=== PATIENT | male | born 1965 | race African-American/Black ===

== ENCOUNTER 2016-12-18 15:38 | Emergency (ER) | payer BC ==
[~2016-12-18] VITALS: Ht 170.2 cm; Wt 95.3 kg
[2016-12-18 16:22] LABS: Urine Bilirubin Negative (Negative); Urine Blood TRACE /uL (Negative); Urine Color Yellow (Yellow); Urine Glucose Normal (Normal); Urine Ketone Negative (Negative); Urine Nitrite Negative (Negative); Urine RBC 1 /hpf (0 - 3); Urine Urobilinogen Normal (Negative); Urine pH 5.5 (5.0-8.0)
[2016-12-18 16:38] LABS: Basophils # (auto) 0 uL; Basophils % (auto) 0.4 % (0.0-2.0); CONDITION Y; Eosinophils # (auto) 0.1 uL; Eosinophils % (auto) 1.6 % (0.0-7.0); Hematocrit 47.3 % (41.0-53.0); Hemoglobin 16.1 g/dL (13.5-17.5); Lymphocytes # (auto) 2.6 uL; Lymphocytes % (auto) 43.1 % (10.0-50.0); Mean Corpuscular Hgb Conc. 34.1 g/dL (32.0-36.0); Mean Corpuscular Volume 93.7 fL (80.0-100.0); Mean Platelet Volume 7.8 fL (7.4-10.4); Monocytes # (auto) 0.5 uL; Neutrophils # (auto) 2.9 uL; Neutrophils % (auto) 46.9 % (37.0-80.0); Platelet Count (auto) 258 10^3/uL (140-450); Red Cell Distribution Width 13.2 % (11.6-16.0); White Blood Cell 6.1 10^3/uL (4.4-10.8)
[2016-12-18 17:12] LABS: Albumin 3.8 g/dL (3.4-5.0); BUN/Creatinine Ratio 11.5; Calcium 8.4 mg/dL (8.5-10.1); Potassium 3.5 mmol/L (3.5-5.1)
[2016-12-18 17:15] LABS: Bilirubin, Total 0.3 mg/dL (0.2-1.0); Total Protein 7.3 g/dL (6.4-8.2)
[2016-12-19 03:19] LABS: Magnesium 2.6 mg/dL (1.6-2.6)
[2016-12-19 03:33] LABS: Temperature: 21.8 C (20.0-25.0)
[2016-12-19 05:30] VITALS: BP 102/66
== END 2016-12-19 05:33 | disposition home or self-care (01) ==
LOC: ER 15:40
DX: R00.2 Palpitations (principal); G43.909 Migraine, unspecified, not intractable, without status migrainosus
CPT/HCPCS: 36415; 71010; 80053; 80307; 81001; 83735; 83880; 84443; 84484; 85025; 93005

== ENCOUNTER 2023-04-19 17:09 | Emergency (ER) | payer BC ==
[~2023-04-19] VITALS: Ht 170.2 cm; Wt 108.0 kg
[2023-04-19 19:35] LABS: Basophils # (auto) 0 10 ^3/uL (0-0.2); Basophils % (auto) 0.4 % (0.0-2.0); Eosinophils # (auto) 0.1 10 ^3/uL (0-0.8); Eosinophils % (auto) 1.3 % (0.0-7.0); Hematocrit 47.3 % (41.0-53.0); Hemoglobin 15.9 g/dL (13.5-17.5); Lymphocytes # (auto) 1.9 10 ^3/uL (0.4-5.4); Lymphocytes % (auto) 39.5 % (10.0-50.0); Mean Corpuscular Hemoglobin 31.3 pg (28.0-32.0); Mean Corpuscular Hgb Conc. 33.5 g/dL (32.0-36.0); Mean Corpuscular Volume 93.4 fL (80.0-100.0); Monocytes # (auto) 0.3 10 ^3/uL (0-1.3); Monocytes % (auto) 6.8 % (0.0-12.0); Neutrophils # (auto) 2.5 10 ^3/uL (1.6-8.6); Nucleated Red Blood Cells % 0.1 %; Red Blood Cells 5.07 10^6/uL (4.5-5.90); Red Cell Distribution Width 13.5 % (11.8-14.3); White Blood Cell 4.8 10^3/uL (4.4-10.8)
[2023-04-19 20:12] LABS: Alanine Aminotransferase 28 U/L (7-40); Albumin 4.6 g/dL (3.2-4.8); Alkaline Phosphatase 61 U/L (46-116); Anion Gap 5 (5-15); Aspartate Aminotransferase 20 U/L (13-40); BUN/Creatinine Ratio 9.7 (10.0-20.0); Blood Urea Nitrogen 12 mg/dL (9-23); Calcium 9.3 mg/dL (8.7-10.4); Carbon Dioxide 29 mmol/L (20-30); Chloride 105 mmol/L (98-107); Glucose 96 mg/dL (74-106); Potassium 4.7 mmol/L (3.5-5.1); Sodium 139 mmol/L (136-145)
[2023-04-19 20:13] LABS: Bilirubin, Total 0.7 mg/dL (0.2-1.0); Total Protein 7.4 g/dL (5.7-8.2)
[2023-04-20 03:31] VITALS: BP 115/73; PULSE 72; RESP 18; TEMP 98.3; O2SAT 97
== END 2023-04-20 03:56 | disposition home or self-care (01) ==
LOC: ER 17:09 → EDUNIT# 17:09 → ER 04-20 03:56
DX: R00.2 Palpitations (principal); I47.10 Supraventricular tachycardia, unspecified; I10 Essential (primary) hypertension; I25.2 Old myocardial infarction; K21.9 Gastro-esophageal reflux disease without esophagitis; M19.90 Unspecified osteoarthritis, unspecified site; Z85.9 Personal history of malignant neoplasm, unspecified; Z98.890 Other specified postprocedural states
CPT/HCPCS: 36415; 71045; 80053; 84484; 85025; 93005

== ENCOUNTER 2023-11-08 06:55 | Day surgery (SDC) | payer BC ==
[~2023-11-08] VITALS: Ht 170.2 cm; Wt 99.8 kg
[~2023-11-08 06:55] MED LIST: CHOL20007 PO; MAGN400T40 PO; METO25TA5 PO; OMEP20TA PO
[2023-11-08] MEDS ORDERED: MIDAZOLAM HCL 2MG/2ML 2ml VIAL (1mg/ml) ONE (10:49)
[2023-11-08] MEDS ORDERED: fentaNYL CITRATE 100 MCG/2 ML VL ONE (10:49)
[2023-11-08] MEDS ORDERED: LIDOCAINE 2%HCL (LOCAL ANESTH.) INJ 20ML MDV ONE (10:50)
[2023-11-08] MEDS ORDERED: VANCOMYCIN 1GM/200ML 200 ML IV ONE (10:50)
[2023-11-08] MEDS: VANCOMYCIN 1GM/200ML 200 ML IV ONE (10:55)
== END 2023-11-08 12:34 | disposition home or self-care (01) ==
LOC: CATH 06:55
PROVIDERS: ATTEND Internal Medicine
DX: R55 Syncope and collapse (principal); R00.2 Palpitations; Z85.46 Personal history of malignant neoplasm of prostate
CPT/HCPCS: 33285; C1764; J2250; J3010; J3370; J7030; 99152

== ENCOUNTER 2023-12-27 08:48 | Day surgery (SDC) | payer BC ==
[2023-12-27] VITALS (9 sets, daily range): BP systolic 92–120; BP diastolic 55–82; PULSE 74–86; RESP 12–22; TEMP 97.6; O2SAT 96–97
[~2023-12-27] VITALS: Ht 170.2 cm; Wt 102.1 kg
[2023-12-27] MEDS ORDERED: ANGIOMAX 250 MG VIAL IV ONE (10:44)
[2023-12-27] MEDS ORDERED: MIDAZOLAM HCL 2MG/2ML 2ml VIAL (1mg/ml) ONE ×2 (10:44→11:19)
[2023-12-27] MEDS ORDERED: VERAPAMIL 2.5MG/ML INJ 2ML VIAL IV ONE (10:44)
[2023-12-27] MEDS ORDERED: HEPARIN SODIUM (PORCINE) 5000 UNITS/ML 1ML VIAL ONE (10:44)
[2023-12-27] MEDS ORDERED: fentaNYL CITRATE 100 MCG/2 ML VL ONE (10:44)
[2023-12-27] MEDS ORDERED: IODIXANOL 320MG/ML 100ML BTL IV ONE ×2 (10:45→10:58)
[2023-12-27] MEDS ORDERED: SODIUM CHL 0.9% 50 ML ONE (10:45)
[2023-12-27] MEDS ORDERED: LIDOCAINE 2%HCL (LOCAL ANESTH.) INJ 20ML MDV ONE (10:45)
== END 2023-12-27 14:04 | disposition home or self-care (01) ==
LOC: CATH 08:48
PROVIDERS: ATTEND Internal Medicine
DX: I25.10 Atherosclerotic heart disease of native coronary artery without angina pectoris (principal); I47.20 Ventricular tachycardia, unspecified; Z85.46 Personal history of malignant neoplasm of prostate
CPT/HCPCS: 92978; 93458; C1769; C1887; C1894; J0583; J1644; J2250; J3010; J7030; Q9967; 99152

== ENCOUNTER 2024-08-07 12:19 | Day surgery (SDC) | payer BC ==
[~2024-08-07] VITALS: Ht 170.2 cm; Wt 104.3 kg
[~2024-08-07 12:19] MED LIST changes: +CINN500C7 PO; -OMEP20TA PO
[2024-08-07] MEDS ORDERED: MIDAZOLAM HCL 2MG/2ML 2ml VIAL (1mg/ml) ONE (15:34)
[2024-08-07] MEDS ORDERED: LIDOCAINE 2%HCL (LOCAL ANESTH.) INJ 20ML MDV ONE (15:34)
[2024-08-07] MEDS ORDERED: fentaNYL CITRATE 100 MCG/2 ML VL ONE (15:34)
[2024-08-07] MEDS ORDERED: VANCOMYCIN 1GM/200ML PM 200 ML IV ONE (15:49)
[2024-08-07 16:10] VITALS: BP 131/88; PULSE 80; RESP 18; TEMP 97.8; O2SAT 97
[2024-08-07 16:25] VITALS: BP 123/85; PULSE 80; RESP 18; O2SAT 97
[2024-08-07 16:40] VITALS: BP 124/87; PULSE 75; RESP 18; O2SAT 97
--- NOTE | 2024-08-07 16:43 | DVHOP2 ---
Operative Report - 2 Report Details Date: 08/07/24 Preop Diagnosis: atrial and ventricular dysrhythmias. Postop Diagnosis: Loop recorder device placement. Surgeon: John Licea MD Anesthesiologist: Conscious sedation. Anesthesia: Mac, Local ( Conscious sedation given an ordered throughout the procedure. I monitored the patient personally.) Consent: The patient was informed of the risks and benefits of the procedure. These include but are not limited to complications of anesthesia, postoperative infection, incomplete relief of symptoms, recurrence of symptoms, damage to b lood vessels, nerves and tendons, deep venous thrombosis, pulmonary embolism and possible need for repeat surgery in the future. Complications: No complications. Estimated Blood Loss: 2 cc Findings: No significant abnormalities. Indications for Surgery: Atrial and ventricular dysrhythmias Name of Procedure Performed Loop recorder placement Procedure Details Procedure Details: Prior full informed consent obtained patient was prepped and draped in usual fashion. Over a pre-existing site in the left parasternal area at the 6th intercostal space we made a small incision with a beveled the trocar into the subcutaneous tissue. Local anesthetic was provided. We then placed he small trocar filled loaded with a Bio[employer] III by [employer]. Serial [id number]. THERE WAS ADEQUATE SENSING OF HEART RATE. LOOP RECORDER DEVICE WAS FUNCTIONING WELL. WE SUTURED THE LESION CLOSED WITH 4-0 MONOCRYL. SKIN GLUE WAS USED ON THE SURFACE. PATIENT TOLERATED THE PROCEDURE WELL. P WAVES OF 0.54 WERE NOTED. THERE WAS ADEQUATE SENSITIVITY. Settings were AFib and medium 8/16. High ventricular rate 160 per at 12 intervals. Bradycardia 40 beats per minutes gradient 15 seconds. Sudden rate drop gradient 50%. Asystole for more than 3 seconds. Patient trigger on. Patient tolerated procedure well there were no complications. Outpatient follow up in 10 days Condition Good Disposition Home Date of Service: Aug 07, 2024 Billing Provider: JOHN LICEA Sr., MD Cardiology Common Codes: 44672-[id number] INP/OBS CARE (High) Card. Pacer Implants/Gen [id number] SING LEAD PACER ( Loop recorder inserted.) JOHN LICEA Sr., MD Aug 07, 2024 16:43
[2024-08-07 16:55] VITALS: BP 131/93; PULSE 75; RESP 18; O2SAT 97
== END 2024-08-07 17:35 | disposition home or self-care (01) ==
LOC: CATH 12:19
PROVIDERS: ATTEND Internal Medicine
DX: I49.8 Other specified cardiac arrhythmias (principal); I47.20 Ventricular tachycardia, unspecified; Z79.899 Other long term (current) drug therapy; Z85.46 Personal history of malignant neoplasm of prostate
CPT/HCPCS: 33285; C1764; J2250; J3010; J3370; 99152